=== PATIENT | female | born 1985 | race Caucasian/White ===

== ENCOUNTER → 2020-07-12 | Outpatient (CLI) | payer OTHER ==
[~2020-07-12] MED LIST: LORTAB 7.5-3251 EACH PO; MACROBID 100 M100 MG PO; MIRALAX PACK 171 PKT PO; NAPROSYN500 MG PO
== END ==
LOC: RT 08:26
DX: I10 Essential (primary) hypertension (principal); R53.83 Other fatigue; I49.8 Other specified cardiac arrhythmias
CPT/HCPCS: 93005

== ENCOUNTER → 2020-09-20 | Outpatient (CLI) | payer OTHER | LOC: HEART 5 11:00 | DX: R07.9 Chest pain, unspecified (principal) | CPT/HCPCS: 93306 ==

== ENCOUNTER 2021-10-03 20:58 | Emergency (ER) | payer BC ==
[2021-10-03 21:22] LABS: RED BLOOD COUNT 4.69 M/UL (4.00-5.10)
[2021-10-03 21:48] LABS: BUN/CREATININE RATIO 12 (0-10)
[2021-10-04 01:27] LABS: BUN/CREATININE RATIO 12 (0-10)
== END 2021-10-04 02:41 | disposition home or self-care (01) ==
LOC: ER1 20:58
PROVIDERS: Family Medicine
DX: R07.9 Chest pain, unspecified (principal); I10 Essential (primary) hypertension; Z90.710 Acquired absence of both cervix and uterus
CPT/HCPCS: 71045; 80048; 80053; 82550; 82553; 84484; 85025; 93005; 99285